=== PATIENT | male | born 1995 | race Hispanic/Latino ===

== ENCOUNTER 2017-02-10 07:53 | Observation (INO) | payer SELFPAY ==
[2017-02-10] MEDS ORDERED: Ondansetron ODT 4 MG TAB ONE (08:05)
[2017-02-10 09:19] LABS: #Lymphocytes 1.6 thou/uL (1.20-3.40); #Monocytes 0.6 thou/uL (0.11-0.59); #Neutrophils 9.9 thou/uL (1.40-6.50); %Eosinophils 0.3 % (0.0-10.0); %Lymphocytes 13.4 % (21.0-51.0); %Monocytes 4.8 % (0.0-10.0); Hematocrit 48.1 % (42.0-52.0); Red Blood Cell (RBC) Count 5.21 mill/uL (4.70-6.10); White Blood Cell (WBC) Count 12.2 thou/uL (4.8-10.8)
[2017-02-10] MEDS ORDERED: Ondansetron HCl/PF 4 MG/2 ML Vial ONE (09:30)
[2017-02-10 09:38] LABS: ALT (SGPT) 14 U/L (8-55); AST (SGOT) 14 U/L (5-34); Alkaline Phosphatase 87 U/L (40-150); Anion Gap 19 mmol/L (10-20); BUN (Urea Nitrogen) 14 mg/dL (8.9-20.6); Bilirubin, Total 1.4 mg/dL (0.2-1.2); CK (CPK) 57 U/L (30-200); Calc. Creatinine Clearance 0 mL/min (70-130); Calcium 10.2 mg/dL (7.8-10.44); Carbon Dioxide 20 mmol/L (22-29); Chloride 105 mmol/L (98-107); Estimated GFR-MDRD Greater than 90; Globulin 2.9 g/dL (2.4-3.5); Lipase 12 U/L (8-78); Protein, Total 7.5 g/dL (6.0-8.3)
[2017-02-10] MEDS ORDERED: Metoclopramide HCl 10 MG/2 ML VIAL ONE (09:43)
--- NOTE | 2017-02-10 10:07 | ULT ---
RIGHT UPPER QUADRANT ULTRASOUND 02/10/17 COMPARISON: 10/12/12 HISTORY: Nausea and vomiting. TECHNIQUE: Multiplanar pascual scale and color doppler images were obtained in a right upper quadrant abdominal ul trasound. FINDINGS: The liver is normal in echogenicity without focal lesions or intrahepatic ductal dilatation. The gal lbladder is normal without stones, sludge, gallbladder wall thickening, or pericholecystic fluid. Th e common bile duct is normal measuring 4 mm. The right kidney has been removed. The visualized portions of the pancreas are unremarkable. IMPRESSION: Unremarkable right upper quadrant abdominal ultrasound. POS: CHALINOH
[2017-02-10 10:15] LABS: Bilirubin Negative (Negative); Blood, Urine Negative (Negative); Glucose, Urine (Dipstick) Negative (Negative); Ketone, Urine 80 mg/dL (Negative); Nitrite Negative (Negative); Protein, Urine (Dipstick) Trace mg/dL (Neg-Trace)
[2017-02-10 10:29] LABS: Amphetamine Not Detected (NotDetected); Methadone Not Detected (NotDetected); Methamphetamine Not Detected (NotDetected)
[2017-02-10] MEDS ORDERED: Promethazine HCl 25 MG/ML VIAL ONE (10:42)
[2017-02-10] MEDS ORDERED: Acetaminophen 325 MG TAB PO PRN (11:54)
[2017-02-10] MEDS ORDERED: Lidocaine 2% Viscous Solution 10 ML, Aluminum & Magnesium Hydroxide 30 ML SSW SCH ×2 (12:00)
[2017-02-10] MEDS ORDERED: Lidocaine 2% Viscous Solution 10 ML, Aluminum & Magnesium Hydroxide 30 ML SSW PRN ×2 (12:00)
[2017-02-10] MEDS ORDERED: Ondansetron HCl/PF 4 MG/2 ML Vial IVP PRN (12:01)
[2017-02-10] MEDS ORDERED: Morphine 2 MG/ML SYRINGE ONE (12:09)
--- NOTE | 2017-02-10 12:37 | HP ---
PRIMARY CARE PHYSICIAN: None. CHIEF COMPLAINT: Nausea and vomiting. HISTORY OF PRESENT ILLNESS: Mr. Jhaveri is a pleasant 21-year-old gentleman who was seen at [facility] on 02/10/2017. He reports that he had multiple hospitalizations at different hospitals this year for nausea and vomiting. He started having nausea and vomiting two days ago. He also reports epigastric discomfort, cramping in nature, 8/10 at its worst, nonradiating, no known aggravating or relieving factors, accompanied by nausea and vomiting. He reports vomiting multiple times. He reports generalized weakness. He denies fevers or chills. His last bowel movement was 2 days ago. He was seen at [facility] 2 days ago. He reports that he had \\\\"full workup,\\\\" including CT scan. The workup was reportedly negative. He continued to have nausea and vomiting, therefore presented at this emergency room. REVIEW OF SYSTEMS: The following complete review of systems was negative, unless otherwise mentioned in the HPI or below: Constitutional: Weight loss or gain, sense of well-being, ability to conduct usual activities, exercise tolerance. Skin/Breast: Rash, itching, changes in hair growth or loss, nail changes, breast lumps, tenderness, swelling, nipple discharge. Eyes: Vision, double vision, tearing, blind spots, pain. ENT/Mouth: Headaches (location, time of onset, duration, precipitating factors) , vertigo, lightheadedness, injury. Vision, double vision, tearing, blind spots , pain, nose bleeding, colds, obstruction, discharge, dental difficulties, gingival bleeding, dentures, neck stiffness, pain, tenderness, masses in thyroid or other areas. Cardiovascular: Precordial pain, substernal distress, palpitations, syncope, dyspnea on exertion, orthopnea, nocturnal paroxysmal dyspnea, edema, cyanosis, hypertension, heart murmurs, varicosities, phlebitis, claudication. Respiratory: Pain, shortness of breath, wheezing, stridor, cough, hemoptysis, fever or night sweats. Gastrointestinal: Poor appetite, dysphagia, indigestion, abdominal pain, heartburn, eructation, nausea, vomiting, hematemesis, jaundice, constipation, or diarrhea, abnormal stools (trish-colored, tarry, bloody, greasy, foul smelling ), flatulence, hemorrhoids, recent changes in bowel habits. Genitourinary: Urgency, frequency, dysuria, nocturia, hematuria, polyuria, oliguria, unusual (or change in) color of urine, stones, hesitancy, change in size of stream, dribbling, acute retention or incontinence, libido, potency. Musculoskeletal: Pain, swelling, redness or heat of muscles or joints, limitation, of motion, muscular weakness, atrophy, cramps. Neurologic/Psychiatric: Convulsions, paralyses, tremor, incoordination, paraesthesias, difficulties with memory of speech, sensory or motor disturbances , or muscular coordination (ataxia, tremor), emotional problems, anxiety, depression, previous psychiatric care, unusual perceptions, hallucinations. Allergy/Immunologic: Skin rash, anemia, bleeding tendency, polydipsia, polyuria , intolerance to heat or cold. PAST MEDICAL HISTORY: Previous hospitalizations for nausea, vomiting, and abdominal discomfort. PAST SURGICAL HISTORY: Right-sided nephrectomy following basketball injury. PSYCHIATRIC HISTORY: Anxiety, depression, and bipolar disorder. SOCIAL HISTORY: The patient denies tobacco use. He reports frequent marijuana use. He denies alcohol use. FAMILY HISTORY: heart disease in his grandmother. ALLERGIES: No known drug allergies. CURRENT MEDICATIONS: None. PHYSICAL EXAMINATION: GENERAL: On examination, Mr. Jhaveri is awake and alert, not in acute distress. VITAL SIGNS: Blood pressure is 122/76, pulse is 68, he is breathing at rate of 20 and saturating 100% on room air. EYES: No scleral icterus. No conjunctival pallor. ENT: Dry mucosal membranes, no oropharyngeal erythema or exudates. NECK: Supple, nontender, normal range of movement, trachea is midline. RESPIRATORY: Accessory muscles of breathing are not active. Chest wall movements are symmetric bilaterally. LUNGS: Clear to auscultation without wheeze, rhonchi or crepitations. CARDIOVASCULAR: S1 and S2 are heard, regular. LUNGS: Peripheral pulses palpable. No carotid bruit, no pericardial rub. ABDOMEN: Mild epigastric tenderness, no guarding or rigidity. Bowel sounds heard, no hepatomegaly, no splenomegaly. Scar over the right upper quadrant. NEUROLOGIC: Cranial nerves II-XII are intact. Deep tendon reflexes are 2+. MUSCULOSKELETAL: Power is 5/5 in all 4 extremities, normal range of movement at all major extremity joints. SKIN: No rashes or subcutaneous nodules. PSYCHIATRIC: Normal mood, normal affect, patient is oriented to person, place, and time. LYMPHATIC: No cervical lymphadenopathy. IMAGING AND LABORATORY DATA: Mr. Jhaveri's labs and investigations were reviewed. He had an ultrasound examination of the abdomen, which was unremarkable in the right upper quadrant. Laboratory investigation showed leukocytosis with 12,200 white cells, of which 81.4% are neutrophils, normal hemoglobin, normal platelet count, decreased carbon dioxide of 20, elevated glucose of 113, mildly elevated total bilirubin of 1.4, otherwise normal comprehensive metabolic profile, normal lipase, urinalysis positive for ketones , but negative for nitrites and leukocyte esterase, and urine toxicology screen positive for cannabinoids. ASSESSMENT AND PLAN: Mr. Jhaveri is a pleasant 21-year-old gentleman who was seen at [facility] on 02/10/2017. His problem list includes: 1. Nausea and vomiting: Etiology is unclear. It could be related to cannabinoid use. We tried to obtain the CT scan report from [facility]. However, they were unable to locate the report. We will order CT scan at this facility to look into any intraabdominal causes for nausea and vomiting. 2. Abdominal pain: Etiology unclear, could be from nausea and vomiting. We will treat with intravenous pain medications as well as antiemetics. 3. Marijuana use: Patient has been counseled regarding marijuana cessation. 4. Leukocytosis: The patient is afebrile. Urinalysis does not show any evidence of infection. We will continue to monitor vital signs and recheck his white count. 5. Dehydration: Provide intravenous hydration. LEVEL OF RISK: Moderate. LEVEL OF COMPLEXITY: Moderate. MTDD
[2017-02-10] MEDS ORDERED: ISOVUE-370 76%-LOCM 1 ML ONE (13:41)
--- NOTE | 2017-02-10 14:17 | CT ---
CT OF ABDOMEN AND PELVIS PERFORMED WITH IV CONTRAST ENHANCEMENT: Date: 02/10/17 HISTORY: Abdominal pain, nausea, and vomiting. Patient refused to drink the oral contrast. COMPARISON: 09/02/16. FINDINGS: The lung bases are clear. The liver and spleen are normal in size. There is suggestion of some possi ble fatty changes of the liver. Pancreas and gallbladder regions appear unremarkable. The right and left adrenal glands are normal in appearance. The left kidney shows compensatory hyper trophy related to a left nephrectomy. Tiny hypodensity within the left kidney is statistically most likely a small cyst. There is no significant periaortic or mesenteric adenopathy. The right colon, specifically in the re gion of the hepatic flexure, is not well distended. There is some questionable wall thickening versu s underdistention in this region. I cannot exclude the possibility of a minimal colitis change. Lynette lar changes are seen in the left colon, again possibly just related to decompressed state of the col on. CT of pelvis was performed with contrast enhancement. There is no evidence of any significant adenop athy, mass, or free fluid. IMPRESSION: 1. Status post right nephrectomy change. 2. Questionable low grade colitis change versus underdistention. Clinical correlation recommended. POS: [place]
[2017-02-10] MEDS: Sodium Chloride 0.9% 1,000 ML IV SCH ×2 (15:55→21:21)
[2017-02-10] MEDS: Morphine 2 MG/ML SYRINGE SLOW IVP PRN (21:21)
[2017-02-11] MEDS: Morphine 2 MG/ML SYRINGE SLOW IVP PRN ×2 (03:44→08:34)
[2017-02-11 05:16] LABS: #Lymphocytes 1.4 thou/uL (1.20-3.40); #Monocytes 0.6 thou/uL (0.11-0.59); #Neutrophils 8.9 thou/uL (1.40-6.50); %Basophils 0.1 % (0.0-1.0); %Eosinophils 0.1 % (0.0-10.0); %Lymphocytes 12.7 % (21.0-51.0); %Monocytes 5.8 % (0.0-10.0); Anion Gap 16 mmol/L (10-20); BUN (Urea Nitrogen) 9 mg/dL (8.9-20.6); Calc. Creatinine Clearance 166 mL/min (70-130); Calcium 9.7 mg/dL (7.8-10.44); Carbon Dioxide 21 mmol/L (22-29); Chloride 105 mmol/L (98-107); Estimated GFR-MDRD Greater than 90; Hematocrit 45.9 % (42.0-52.0); Mean Platelet Volume 8.7 fL (7.4-10.4)
[2017-02-11] MEDS ORDERED: Acetaminophen/Codeine 30-300mg Tablet PO PRN (08:44)
[2017-02-11] MEDS ORDERED: Ondansetron ODT 4 MG TAB PO PRN (08:44)
[2017-02-11] MEDS ORDERED: FLU VACC QS2017-18 36 mo. & older 0.5 ML SYRINGE IM ONE (09:00)
[2017-02-11] MEDS ORDERED: Enoxaparin Sodium 40 MG/0.4 ML SYRINGE SC SCH (09:00)
[2017-02-11] MEDS: Sodium Chloride 0.9% 1,000 ML IV SCH (11:03)
[2017-02-11 14:56] VITALS: BMI 23.6
[2017-02-11 15:23] VITALS: BP 128/83; TEMP 98.2
--- NOTE | 2017-02-11 20:15 | DIS ---
PRIMARY CARE PROVIDER: None. DATE OF ADMISSION: 02/10/2017 DATE OF DISCHARGE: 02/11/2017 DISCHARGE DIAGNOSES: 1. Nausea and vomiting, improved 2. Abdominal pain, resolved. CONDITION OF PATIENT AT THE TIME OF DISCHARGE: Stable. PHYSICAL EXAMINATION: GENERAL: I assessed Mr. Jhaveri prior to discharge. He denies any chest pain or shortness of breath. Nausea has improved. VITAL SIGNS: Stable. S1 and S2 are heard, regular. LUNGS: Clear to auscultation bilaterally. ABDOMEN: Soft, nontender, bowel sounds are heard. HOSPITAL COURSE: Mr. Jhaveri is a pleasant 21-year-old gentleman, who was admitted to [facility] for nausea, vomiting, and abdominal pain. He received intravenous fluids, antiem etics, and pain medications. He improved with treatments. He is being discharged home in a stable condition. He is advised to follow up with his primary care provider in 3-5 days. On the day of discharge, Mr. Jhaveri has white count of 11,000, hemoglobin 15.2, platelet count 210,00 0, normal sodium, normal potassium, normal creatinine. During this hospitalization, he had urine to xicology screen that was positive for cannabinoids. He has been advised to stop marijuana use. DISCHARGE MEDICATIONS: Tylenol 500 mg every 6 hours as needed, Zofran 4 mg every 6 hours as needed, and Protonix 40 mg daily. DISCHARGE DESTINATION: Home.
== END 2017-02-11 17:00 | disposition home or self-care (01) ==
LOC: ERS 07:53 → 2SW 11:37
PROVIDERS: ADMIT Internal Medicine; ATTEND Internal Medicine
DX: R11.2 Nausea with vomiting, unspecified (principal); R10.9 Unspecified abdominal pain; F31.9 Bipolar disorder, unspecified; Z90.5 Acquired absence of kidney
CPT/HCPCS: 36415; 74177; 76705; 80048; 80053; 80306; 81003; 82550; 83690; 85025; 90471; 90682; 96361; 96365; 96372; 96375; 96376; G0008; G0378; J1650; J2270; J2405; J2550; J2765; Q0162; Q2036

== ENCOUNTER 2017-04-01 16:13 | Emergency (ER) | payer SELFPAY ==
[~2017-04-01 16:13] MED LIST: ISOVUE-370 76%-LOCM 1 ML ONE; Iopamidol 370 76% 50 ML VIAL FS ONE
[2017-04-01 16:58] LABS: #Lymphocytes 1.6 thou/uL (1.20-3.40); #Monocytes 0.4 thou/uL (0.11-0.59); #Neutrophils 11.9 thou/uL (1.40-6.50); %Basophils 0.3 % (0.0-1.0); %Eosinophils 0.3 % (0.0-10.0); %Lymphocytes 11.3 % (21.0-51.0); Mean Platelet Volume 7.7 fL (7.4-10.4); Red Blood Cell (RBC) Count 5.23 mill/uL (4.70-6.10); White Blood Cell (WBC) Count 13.9 thou/uL (4.8-10.8)
[2017-04-01] MEDS ORDERED: Sucralfate 1 GM/10 ML UDCUP ONE (17:08)
[2017-04-01] MEDS ORDERED: diphenhydrAMINE 50 MG/ML VIAL ONE (17:08)
[2017-04-01] MEDS ORDERED: Metoclopramide HCl 10 MG/2 ML VIAL ONE (17:08)
[2017-04-01 17:20] LABS: ALT (SGPT) 11 U/L (8-55); AST (SGOT) 17 U/L (5-34); Alkaline Phosphatase 94 U/L (40-150); Anion Gap 17 mmol/L (10-20); BUN (Urea Nitrogen) 9 mg/dL (8.9-20.6); Bilirubin, Total 0.6 mg/dL (0.2-1.2); Calc. Creatinine Clearance 0 mL/min (70-130); Calcium 10.3 mg/dL (7.8-10.44); Carbon Dioxide 22 mmol/L (22-29); Chloride 105 mmol/L (98-107); Estimated GFR-MDRD Greater than 90; Globulin 3.2 g/dL (2.4-3.5); Lipase 14 U/L (8-78); Protein, Total 7.8 g/dL (6.0-8.3)
[2017-04-01 18:48] LABS: Bilirubin Negative (Negative); Blood, Urine Negative (Negative); Glucose, Urine (Dipstick) Negative (Negative); Ketone, Urine 80 mg/dL (Negative); Nitrite Negative (Negative); Protein, Urine (Dipstick) Trace mg/dL (Neg-Trace); Urobilinogen 0.2 mg/dL (0.2-1.0)
[2017-04-01] MEDS ORDERED: Promethazine HCl 25 MG/ML VIAL ONE (20:25)
[2017-04-01] MEDS ORDERED: Ondansetron HCl/PF 4 MG/2 ML Vial ONE (21:19)
--- NOTE | 2017-04-01 22:27 | CT ---
ABDOMEN AND PELVIS CT WITH CONTRAST 04/01/17 COMPARISON: 02/10/17 CLINICAL HISTORY: Abdominal pain, colitis. 21-year-old male. FINDINGS: No consolidation at the imaged lung bases. Redemonstration of postop right nephrectomy with hypertrop hy of the left kidney. Small parenchymal hypodensity of the anterolateral left kidney remains, stable appearing, too small to definitively characterize. No acute abnormality identified within the solid abdominal viscera. There is incomplete evaluation of the bowel without enteric contrast. No free air. No ascites of significance or evidence of portal venous gas. Gallbladder is grossly unremarkable. Ab dominal aorta is normal in caliber. There is a mild degree of stable appearing wall prominence of the distal sigmoid colon/rectum. There is no acute osseous pathology. IMPRESSION: Grossly stable CT exam. There is a mild degree of stable appearing wall prominence of the distal sigm oid colon/rectum, incompletely assessed without enteric contrast. This could relate to a mild degree of focal colitis. Correlate with physical exam and as necessary endoscopy. POS: Robert
== END 2017-04-01 23:25 | disposition home or self-care (01) ==
LOC: ERS 16:13
DX: K52.9 Noninfective gastroenteritis and colitis, unspecified (principal); F41.9 Anxiety disorder, unspecified; F31.9 Bipolar disorder, unspecified
CPT/HCPCS: 36415; 74177; 80053; 81003; 83690; 85025; 85652; 86140; 96361; 96374; 96375; J1200; J2405; J2550; J2765